=== PATIENT | male | born 1975 ===

== ENCOUNTER 2020-09-14 06:40 | Day surgery (SDC) | payer OTHER | END 2020-09-14 13:25 | disposition home or self-care (01) | LOC: AMB-ENDOS 06:40 | PROVIDERS: ATTEND Colon & Rectal Surgery | DX: D12.4 Benign neoplasm of descending colon (principal); D12.5 Benign neoplasm of sigmoid colon; Z20.822 Contact with and (suspected) exposure to COVID-19 ==